=== PATIENT | female | born 1970 | race Caucasian/White ===

== ENCOUNTER 2016-12-24 18:19 | Emergency (ER) | payer BC ==
[~2016-12-24] VITALS: Ht 157.5 cm; Wt 81.5 kg
[~2016-12-24 18:19] MED LIST: HYDR-906 PO; LEVO88TA PO; MAG-19 PO; OMEP20CA16 PO; ONDA4TAB14 PO
[2016-12-24 19:07] VITALS: Ht 157.5 cm; Wt 81.5 kg
[2016-12-24] MEDS ORDERED: KETOROLAC 30 MG INJ IM STA (20:25)
[2016-12-24] MEDS ORDERED: OXYC-279 PO (20:29)
[2016-12-24] MEDS ORDERED: IBUP-1542 PO (20:29)
--- NOTE | 2016-12-24 20:36 | ERD ---
ER Documentation Chief Complaint Date/Time DATE: 12/24/16 TIME: 20:31 Chief Complaint abscess right axilla HPI 46-year-old woman inappropriately triaged as "abscess" presents with pain discomfort to the right axilla with paresthesias radiating down her arm 1 week. 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 She denies any breast issues, and by happenstance had bilateral mammography just 3 days ago and the results of the mammogram are pending and she stated she would follow-up with her primary care physician. She denies any breast pain, redness , or swelling, denies weight loss, no personal family history of breast cancer, no fevers or chills, no chest pain or shortness of breath. Patient states pain in the axilla and paresthesias are worse with movement of the right upper extremity and worse with typing. ROS All systems reviewed and are negative except as per history of present illness. Medications Home Meds Active Scripts Oxycodone HCl/Acetaminophen (Percocet 5-325 mg Tablet) 1 Each Tablet, 1 EACH PO TID for PAIN LEVEL 6-10, #9 TAB Prov:SANTO BETH MD 12/24/16 Ibuprofen* (Motrin*) 600 Mg Tab, 600 MG PO Q8 for PAIN AND/OR INFLAMMATION, #30 TAB Prov:SANTO BETH MD 12/24/16 Hydrocodone/Acetaminophen ([place] 5-325 Tablet) 1 Each Tablet, 1 TAB PO Q6H Y for PAIN, #20 TAB Prov:BECKI POMPA NP 06/19/16 Omeprazole* (Omeprazole*) 20 Mg Capsule.dr, 20 MG PO DAILY, #30 Prov:BECKI POMPA NP 06/19/16 Magaldrate/Simethicone* (Mylanta*) 355 Ml Susp, 30 ML PO QID Y for GASTROINTESTINAL UPSET, #1 BOTTLE Prov:BECKI POMPA NP 06/19/16 Ondansetron (Ondansetron Odt) 4 Mg Tab.rapdis, 4 MG PO Q8 Y for NAUSEA AND/OR VOMITING, #30 TAB Prov:BECKI POMPA NP 06/19/16 Reported Medications Levothyroxine Sodium* (Synthroid*) Unknown Strength Tablet, PO BEFORE BREAKFAST , #30 TAB 06/19/16 Allergies Allergies: Coded Allergies: No Known Drug Allergies (Verified Allergy, Mild, 03/13/16) PMhx/Soc Hypothyroidism History of Surgery: Yes (APPENDECTOMY, HYSTERECTOMY) Anesthesia Reaction: No Hx Neurological Disorder: No Hx Respiratory Disorders: No Hx Cardiac Disorders: No Hx Psychiatric Problems: No Hx Miscellaneous Medical Probl: Yes (Hypothyroidism) Hx Alcohol Use: No Hx Substance Use: No Hx Tobacco Use: No Smoking Status: Never smoker FmHx Family History: No diabetes Physical Exam Vitals Vital Signs Date Time Temp Pulse Resp B/P Pulse Ox O2 Delivery O2 Flow Rate FiO2 12/24/16 19:07 98.2 87 20 128/55 100 Physical Exam GENERAL: Well-developed, well-nourished, well-hydrated, in no apparent distress , looks nontoxic in appearance HEENT: Moist mucous membranes, pink conjunctiva, no cervical spine tenderness or step-off deformities, no goiter, no jaundice or icterus, extraocular movements intact without pain. No submandibular induration, and no pharyngeal erythema NEURO: Alert and oriented 3, cranial nerves II through XII intact bilaterally, pupils equal round reactive to light, no focal deficits or facial asymmetry, sensation intact distally Strength 5/5 in upper and lower extremities bilaterally CARDIAC: Regular rate and rhythm, no murmurs rubs or gallops LUNGS: Clear bilaterally no wheezing crackles or stridor ABDOMEN: Soft nontender, no guarding, no rigidity, no rebound, no psoas sign no obturator sign. Normoactive bowel sounds SKIN: Warm and dry to touch, no abrasions, contusions, or hematomas, no lacerations, no ecchymosis, no target lesions, and without ulcers EXTREMITIES: No clubbing cyanosis or edema, calves are bilaterally symmetrical, no Homans sign, no popliteal cord sign. Distal pulses equal and bilateral. No axilla lymphadenopathy palpated PSYCH: Normal affect without agitation or irritability Results 24 hrs Current Medications Medications (Trade) Dose Ordered Sig/Omar Route PRN Reason Start Time Stop Time Status Last Admin Dose Admin Ketorolac Tromethamine (Toradol) 30 mg ONCE STAT IM 12/24/16 20:25 12/24/16 20:26 UNV Procedures/MDM Examination was benign and patient has musculoskeletal pain of the right upper extremity associated with paresthesias. She has no neck pain or deformity, no motor deficit, and no skin findings. I recommended she follow-up with her mammogram results, and follow-up with her PMD if symptoms should continue, in the meantime I will be prescribing her analgesics and anti-inflammatories. I administered Toradol 30 mg intramuscular injection, and a right upper extremity sling was placed with the elbow flexed to 90 for comfort and supportive measures. Splint Assessment: Neurovascularly intact post splint placement with good fit. Patient feels much better at this time, and vital signs are normal, symptoms have improved. I did give strict instructions to return to the ED if symptoms continue or worsen, patient will otherwise follow-up with primary care physician. Patient understood instructions and agreed to plan. Departure Diagnosis: Primary Impression: Muscle strain, upper arm Encounter type: initial encounter Laterality: right Qualified Code: S46.911A - Muscle strain, upper arm, right, initial encounter Condition: Good Patient Instructions: Muscle Strain, Extremity, Paraesthesias SANTO BETH MD Dec 24, 2016 20:36
== END 2016-12-24 20:55 | disposition home or self-care (01) ==
LOC: FTE 18:19
DX: S46.911A Strain of unspecified muscle, fascia and tendon at shoulder and upper arm level, right arm, initial encounter (principal); E03.9 Hypothyroidism, unspecified; X58.XXXA Exposure to other specified factors, initial encounter; Y92.9 Unspecified place or not applicable
CPT/HCPCS: 96372; J1885

== ENCOUNTER 2018-10-25 16:33 | Emergency (ER) | payer BC ==
[~2018-10-25] VITALS: Ht 167.6 cm; Wt 84.5 kg
[~2018-10-25 16:33] MED LIST changes: +HYDR-4011 PO; -HYDR-906 PO; +IBUP-1542 PO; +OXYC-279 PO
[2018-10-25 16:39] VITALS: Ht 167.6 cm; Wt 84.5 kg
[2018-10-25] MEDS ORDERED: THY90 ORAL (20:04)
[2018-10-25 20:30] VITALS: BP 127/73; PULSE 86; RESP 13
--- NOTE | 2018-10-25 20:43 | ERD ---
ER Documentation Chief Complaint Chief Complaint Complains of chest pain and right arm pain with numbness HPI 48-year-old female with a history of hypothyroidism presenting with complaints of right arm tingling for the past 2-3 days, worse at night. She only feels in a few of her fingers and different parts of her arm. She denies any associated neck pain. Today while she was at work, she suddenly felt a sharp pain in her right upper chest that took her breath away. This only lasted a few seconds but worried the patient significantly. She had associated nausea at the time but no syncopal episode. Currently the chest pain is completely resolved and she denies any shortness of breath. She does occasionally feel some tingling in her right upper extremity. She denies any neck or back pain. No associated focal weakness. No associated neck injury or neck manipulation recently. No history of immobilization, recent travel, blood clots, or recent surgeries. No family history of blood clots. ROS All systems reviewed and are negative except as per history of present illness. Medications Home Meds Reported Medications Thyroid ([place] Thyroid) 90 Mg Tab, 1 TAB ORAL DAILY 10/25/18 Discontinued Reported Medications Levothyroxine Sodium* (Synthroid*) Unknown Strength Tablet, PO BEFORE BREAKFAST, #30 TAB 06/19/16 Discontinued Scripts Oxycodone HCl/Acetaminophen (Percocet 5-325 mg Tablet) 1 Each Tablet, 1 EACH PO TID for PAIN LEVEL 6-10, #9 TAB Prov:SANTO BETH MD 12/24/16 Ibuprofen* (Motrin*) 600 Mg Tab, 600 MG PO Q8 for PAIN AND/OR INFLAMMATION, #30 TAB Prov:SANTO BETH MD 12/24/16 Hydrocodone/Acetaminophen ([place] 5-325 Tablet) 1 Each Tablet, 1 TAB PO Q6H PRN for PAIN, #20 TAB Prov:BECKI POMPA NP 06/19/16 Omeprazole* (Omeprazole*) 20 Mg Capsule.dr, 20 MG PO DAILY, #30 Prov:BECKI POMPA NP 06/19/16 Magaldrate/Simethicone* (Mylanta*) 355 Ml Susp, 30 ML PO QID PRN for GASTROINTESTINAL UPSET, #1 BOTTLE Prov:BECKI POMPA NP 06/19/16 Ondansetron (Ondansetron Odt) 4 Mg Tab.rapdis, 4 MG PO Q8 PRN for NAUSEA AND/OR VOMITING, #30 TAB Prov:BECKI POMPA JACQUES TFrancisco Javier GREWAL 06/19/16 Allergies Allergies: Coded Allergies: No Known Drug Allergies (Verified Allergy, Mild, 10/25/18) PMhx/Soc History of Surgery: Yes (APPENDECTOMY, HYSTERECTOMY) Anesthesia Reaction: No Hx Neurological Disorder: No Hx Respiratory Disorders: No Hx Cardiac Disorders: No Hx Psychiatric Problems: No Hx Miscellaneous Medical Probl: Yes (Hypothyroidism) Hx Alcohol Use: No Hx Substance Use: No Hx Tobacco Use: No Smoking Status: Never smoker FmHx Family History: No diabetes Physical Exam Vitals Vital Signs Date Temp Pulse Resp B/P (MAP) Pulse Ox O2 O2 Flow FiO2 Time Delivery Rate 10/25/18 86 13 127/73 100 Room Air 20:30 (91) 10/25/18 75 16 135/97 100 Room Air 20:00 (110) 10/25/18 74 23 131/131 100 Room Air 19:08 (131) 10/25/18 79 18 149/66 98 Room Air 18:00 (93) 10/25/18 97.3 73 20 132/74 99 16:39 (93) Physical Exam Const: No acute distress Head: Atraumatic Eyes: Normal Conjunctiva, PERRLA, EOMI ENT: Normal External Ears, Nose and Mouth. Neck: Full range of motion. No meningismus. No midline tenderness. Mild right-sided paraspinal muscle tenderness. Resp: Clear to auscultation bilaterally Cardio: Regular rate and rhythm, no murmurs. 2+ DP and PT pulses bilaterally. 2+ radial pulses bilaterally. Abd: Soft, non tender, non distended. Normal bowel sounds Skin: No petechiae or rashes Back: No midline or flank tenderness Ext: No cyanosis, or edema. Full range of motion at all joints. Neur: Awake and alert, normal speech, no facial asymmetry, strength and sensations intact in all 4 extremities Psych: Normal Mood and Affect Result Diagram: 10/25/18195310/25/181953 Results 24 hrs Laboratory Tests Test 10/25/18 19:54 White Blood Count 8.4 10^3/ul Red Blood Count 4.84 10^6/ul Hemoglobin 13.6 g/dl Hematocrit 41.1 % Mean Corpuscular Volume 84.9 fl Mean Corpuscular Hemoglobin 28.1 pg Mean Corpuscular Hemoglobin Concent 33.1 g/dl Red Cell Distribution Width 12.8 % Platelet Count 217 10^3/UL Mean Platelet Volume 12.0 fl Immature Granulocytes % 0.200 % Neutrophils % 55.7 % Lymphocytes % 35.4 % Monocytes % 6.9 % Eosinophils % 1.4 % Basophils % 0.4 % Nucleated Red Blood Cells % 0.0 /100WBC Immature Granulocytes # 0.020 10^3/ul Neutrophils # 4.7 10^3/ul Lymphocytes # 3.0 10^3/ul Monocytes # 0.6 10^3/ul Eosinophils # 0.1 10^3/ul Basophils # 0.0 10^3/ul Nucleated Red Blood Cells # 0.0 10^3/ul Sodium Level 141 mmol/L Potassium Level 3.8 mmol/L Chloride Level 103 mmol/L Carbon Dioxide Level 25 mmol/L Anion Gap 13 Blood Urea Nitrogen 10 mg/dl Creatinine 0.53 mg/dl Est Glomerular Filtrat Rate mL/min > 60 mL/min Glucose Level 92 mg/dl Calcium Level 9.7 mg/dl Troponin I < 0.012 ng/ml Procedures/MDM EMERGENT LABS AND DIAGNOSTIC STUDIES: Lab Results above were reviewed and interpreted by me. CBC: no anemia or evidence of infection CMP: No evidence of electrolyte abnormality, renal failure, hypoglycemia, liver failure, or biliary obstruction Troponin within normal limits, not indicative of cardiac ischemia 12-lead EKG was interpreted by Jose D Bunch MD: Normal Sinus Rhythm Normal axis Normal intervals No acute ST or T wave changes suggestive of acute ischemia or STEMI. Radiology Results as interpreted by Radiology below were reviewed by Mirian Bunch MD: Chest x-ray shows no acute abnormalities Initial Nursing notes reviewed. Previous Medical Records requested via the Electronic Health Record. EMERGENCY DEPARTMENT COURSE / MEDICAL DECISION MAKING: The patient presents with chest pain and right upper extremity paresthesias for several days. She is neurovascularly intact.. Vitals are stable. I considered pulmonary embolism, aortic dissection, pneumothorax among other diagnoses. EKG did not show any evidence of arrhythmia or ischemia. Chest x-ray did not show any evidence of pneumothorax or other abnormalities. Patient is low risk for PE and for dissection, low suspicion for these. The exact cause of her pain at this time is unclear but likely benign. With regard to her paresthesias in her right upper extremity, this may be due to radiculopathy which I explained to the patient. Doubt stroke or intracranial hemorrhage. Patient instructed to arrange follow up with PCP in the next 2 days and return to the ED for any new or worsening symptoms. Patient's blood pressure was elevated (>120/80) but appears stable without evidence of hypertensive emergency or urgency. The patient was counseled about the risks of hypertension and urged to pursue outpatient monitoring and therapy within a week with their primary care physician. Departure Diagnosis: Primary Impression: Right-sided chest pain Additional Impression: Paresthesia of right arm Condition: Stable Patient Instructions: Chest Pain, Uncertain Cause, Paraesthesias Additional Instructions: Return to the ER for any worsening symptoms. Follow-up with your primary care doctor in the next 2 days. CECI BUNCH MD Oct 25, 2018 20:43
== END 2018-10-25 20:50 | disposition home or self-care (01) ==
LOC: E/R 16:33
DX: R07.9 Chest pain, unspecified (principal); R20.2 Paresthesia of skin; E03.9 Hypothyroidism, unspecified
CPT/HCPCS: 36415; 71045; 80048; 84484; 85025; 93005